=== PATIENT | male | born 1980 | race Two or more races ===

== ENCOUNTER 2016-07-07 19:11 | Emergency (ER) | payer MEDICAID ==
[~2016-07-07] VITALS: Ht 190.5 cm; Wt 93.0 kg
[2016-07-07 20:06] VITALS: BP 111/65
== END 2016-07-07 20:15 | disposition home or self-care (01) ==
LOC: ER 19:12 → EDBD 19:12 → ER 20:15
DX: J18.9 Pneumonia, unspecified organism (principal)
CPT/HCPCS: 71010; 99283; A4606; Z7610

== ENCOUNTER 2016-07-09 16:57 | Emergency (ER) | payer MEDICAID ==
[~2016-07-09] VITALS: Ht 182.9 cm; Wt 86.2 kg
[2016-07-09 17:29] VITALS: BP 144/98
--- NOTE | 2016-07-09 17:39 | NUR ---
Patient discharged to home in stable condition. Written and verbal after care instructions given. Patient verbalizes understanding of instruction.
== END 2016-07-09 17:43 | disposition home or self-care (01) ==
LOC: ER 16:59
DX: F41.9 Anxiety disorder, unspecified (principal); F17.210 Nicotine dependence, cigarettes, uncomplicated
CPT/HCPCS: 99283; A4606; Z7610